=== PATIENT | female | born 2000 | race Caucasian/White ===

== ENCOUNTER 2025-01-11 12:51 | Emergency (ER) | payer OTHER ==
[~2025-01-11] VITALS: Ht 172.7 cm; Wt 56.7 kg
[2025-01-11] MEDS ORDERED: IBUP-1490 PO (13:37)
[2025-01-11] MEDS ORDERED: ONDA4TAB11 PO (13:37)
[2025-01-11] MEDS ORDERED: ACET-2605 PO (13:37)
[2025-01-11 13:51] VITALS: BP 115/70; TEMP 98.5; O2SAT 100
== END 2025-01-11 13:52 | disposition home or self-care (01) ==
LOC: ER 12:58
DX: S06.0X0A Concussion without loss of consciousness, initial encounter (principal); W22.8XXA Striking against or struck by other objects, initial encounter; Y93.89 Activity, other specified; Y92.89 Other specified places as the place of occurrence of the external cause; Y99.8 Other external cause status